=== PATIENT | female | born 1990 | race Two or more races ===

== ENCOUNTER 2018-09-20 16:10 | Observation (INO) | payer MEDICAID ==
[~2018-09-20] VITALS: Ht 157.5 cm; Wt 94.3 kg
[2018-09-20] MEDS ORDERED: TERBUTALINE SULFATE 1 MG/ML 1ML VIAL SC SCH (17:00)
[2018-09-20] MEDS ORDERED: BETAMETHASONE ACET (6MG/ML) 5ML VIAL IM ONE (19:00)
[2018-09-20] MEDS ORDERED: NIFEdipine 10 MG CAP PO ONE (19:00)
[2018-09-20 19:32] LABS: Urine Bacteria MOD /hpf (None Seen); Urine Blood Negative /uL (Negative); Urine Specific Gravity 1.005 (1.001-1.035); Urine WBC 2 /hpf (0 - 5)
[2018-09-20 20:07] LABS: Alcohol, Urine < 3.0 mg/dL (0-5); Amphetamine Screen, Urine NEGATIVE (NEGATIVE); Barbiturate Scree,Urine NEGATIVE (NEGATIVE); Benzodiazephine Screen, Urine NEGATIVE (NEGATIVE); Cannabinoid Screen, Urine NEGATIVE (NEGATIVE); Cocaine Screen, Urine NEGATIVE (NEGATIVE); Opiate Scree,Urine NEGATIVE (NEGATIVE); Phencyclidine Screen, Urine NEGATIVE (NEGATIVE)
[2018-09-20] MEDS ORDERED: NIFE30TA76 PO ×2 (20:26→20:27)
[2018-09-20] MEDS ORDERED: PREN-96 PO (20:26)
[2018-09-20] MEDS ORDERED: NIF10C GT (20:27)
== END 2018-09-20 20:28 | disposition home or self-care (01) | DRG 566 ==
LOC: LDRP 16:10
PROVIDERS: ADMIT Obstetrics & Gynecology; ATTEND Obstetrics & Gynecology
DX: O36.8130 Decreased fetal movements, third trimester, not applicable or unspecified (principal); O26.893 Other specified pregnancy related conditions, third trimester; R10.9 Unspecified abdominal pain; Z3A.32 32 weeks gestation of pregnancy
CPT/HCPCS: 59025; 76817; 76818; 80307; 81001; 81002; 96372; G0378; J0702; J3105

== ENCOUNTER 2018-09-21 10:00 | Observation (INO) | payer MEDICAID ==
[~2018-09-21] VITALS: Ht 157.5 cm; Wt 94.3 kg
[~2018-09-21 10:00] MED LIST: NIF10C GT; PREN-96 PO
[2018-09-21] MEDS ORDERED: BETAMETHASONE ACET (6MG/ML) 5ML VIAL IM ONE (10:30)
== END 2018-09-21 11:35 | disposition home or self-care (01) | DRG 566 ==
LOC: LDRP 10:00
PROVIDERS: ADMIT Specialist; ATTEND Specialist
DX: O26.893 Other specified pregnancy related conditions, third trimester (principal); O36.8130 Decreased fetal movements, third trimester, not applicable or unspecified; R10.9 Unspecified abdominal pain; Z3A.32 32 weeks gestation of pregnancy
CPT/HCPCS: 59025; 81002; 82948; 96372; G0378; J0702

== ENCOUNTER 2018-10-18 15:05 | Observation (INO) | payer MEDICAID | END 2018-10-18 16:40 | disposition home or self-care (01) | DRG 566 | LOC: LDRP 15:05 | PROVIDERS: ADMIT Specialist; ATTEND Specialist | DX: O26.853 Spotting complicating pregnancy, third trimester (principal); O26.893 Other specified pregnancy related conditions, third trimester; F15.90 Other stimulant use, unspecified, uncomplicated; N89.8 Other specified noninflammatory disorders of vagina; O99.323 Drug use complicating pregnancy, third trimester; O60.03 Preterm labor without delivery, third trimester; Z3A.36 36 weeks gestation of pregnancy | CPT/HCPCS: 59025; 81002; G0378 ==

== ENCOUNTER 2018-10-21 01:26 | Observation (INO) | payer MEDICAID ==
[~2018-10-21] VITALS: Ht 157.5 cm; Wt 94.3 kg
[2018-10-21] MEDS ORDERED: hydrOXYzine HCL 25 MG/ML VL IM ONE ×2 (02:00→02:02)
== END 2018-10-21 05:45 | disposition home or self-care (01) | DRG 563 ==
LOC: LDRP 01:26
PROVIDERS: ADMIT Obstetrics & Gynecology; ATTEND Obstetrics & Gynecology
DX: O60.03 Preterm labor without delivery, third trimester (principal); O99.323 Drug use complicating pregnancy, third trimester; F15.90 Other stimulant use, unspecified, uncomplicated; Z3A.36 36 weeks gestation of pregnancy
CPT/HCPCS: 59025; 81002; 96372; G0378; J3410